=== PATIENT | female | born 2000 | race Caucasian/White ===

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

== ENCOUNTER 2019-03-01 17:12 | Emergency (ER) | payer BC ==
[2019-03-01 17:48] VITALS: BP 116/80
--- NOTE | 2019-03-01 18:32 | UC ---
Eye Complaint HPI - HPI Summary HPI Summary: 18-year-old female presents with complaints of swelling beneath both eyes. States started yesterday with some swelling under the left eye and then when she woke up this morning and swelling under the right eye as well. Patient reports that she has been having this happen about once a month for the past 4 months. She was seen by her primary care provider and told to they felt that it was allergy related. She has been referred to an sales representative consultant but did not follow-up. States she has also noted some mild nasal congestion and clear nasal discharge. Denies fever, chills, eye redness, purulent discharge, visual disturbances, or eye pain. - History of Current Complaint Chief Complaint: UCGeneralIllness Stated Complaint: SWOLLEN EYES Time Seen by Provider: 03/01/19 18:25 Hx Obtained From: Patient Hx Last Menstrual Period: nexplanon Pain Intensity: 0 - Allergies/Home Medications Allergies/Adverse Reactions: Allergies Allergy/AdvReac Type Severity Reaction Status Date / Time No Known Allergies Allergy Verified 03/01/19 17:48 PMH/Surg Hx/FS Hx/Imm Hx Previously Healthy: Yes - Denies significant PMH - Surgical History Surgical History: None - Family History Known Family History: Positive: Non-Contributory - Social History Occupation: Student Lives: Dormitory/Roommates Alcohol Use: Rare Substance Use Type: Marijuana Substance Use Comment - Amount & Last Used: denies at this time Smoking Status (MU): Never Smoked Tobacco Review of Systems All Other Systems Reviewed And Are Negative: Yes Constitutional: Negative: Fever, Chills Skin: Negative: Rash Eyes: Positive: Other - See HPI. Negative: Blurred Vision, Diplopia, Drainage, Eye Redness, Photophobia ENT: Positive: Nasal Discharge, Sinus Congestion. Negative: Sore Throat, Ear Ache, Sinus Pain/Tenderness Respiratory: Negative: Shortness Of Breath, Cough Cardiovascular: Positive: Negative Gastrointestinal: Positive: Negative Genitourinary: Positive: Negative Motor: Positive: Negative Neurological: Positive: Negative Is Patient Immunocompromised?: No Physical Exam - Summary Physical Exam Summary: GENERAL APPEARANCE: Well developed, well nourished, alert and cooperative, and appears to be in no acute distress. EYES: Conjunctiva clear. No drainage. PERRL, EOM intact. Vision is grossly intact. Mild bilateral sub orbital edema. EARS: External auditory canals and tympanic membranes clear, hearing grossly intact. NOSE: Mild nasal congestion. Clear nasal discharge. THROAT: Pharynx normal No tonsilar inflammation, swelling, exudate, or lesions. Uvula midline. Oral cavity normal. Teeth and gingiva in good general condition. NECK: Neck supple, non-tender without lymphadenopathy. CARDIAC: Normal S1 and S2. No S3, S4 or murmurs. Rhythm is regular. There is no peripheral edema, cyanosis or pallor. Extremities are warm and well perfused. Capillary refill is less than 2 seconds. Peripheral pulses intact. LUNGS: Clear to auscultation without rales, rhonchi, wheezing or diminished breath sounds. ABDOMEN: Positive bowel sounds. Soft, nondistended, nontender. No guarding or rebound. No masses or hepatosplenomegally. MUSKULOSKELETAL: ROM intact to all extremities. No joint erythema or tenderness. Normal muscular development. Normal gait. SKIN: Skin normal color, texture and turgor with no lesions or eruptions. Triage Information Reviewed: Yes Vital Signs: Initial Vital Signs Temp 99.9 F 03/01/19 17:45 Pulse 100 03/01/19 17:45 Resp 14 03/01/19 17:45 BP 116/80 03/01/19 17:45 Pulse Ox 100 03/01/19 17:45 Vital Signs Reviewed: Yes Eye Complaint Course/Dx - Course Course Of Treatment: 18-year-old female presents with complaints of swelling beneath both eyes. States started yesterday with some swelling under the left eye and then when she woke up this morning and swelling under the right eye as well. Patient reports that she has been having this happen about once a month for the past 4 months. She was seen by her primary care provider and told to they felt that it was allergy related. She has been referred to an sales representative consultant but did not follow-up. States she has also noted some mild nasal congestion and clear nasal discharge. Denies fever, chills, eye redness, purulent discharge, visual disturbances, or eye pain. Afebrile. Vital signs stable. On exam patient was noted to have clear conjunctiva without drainage, PERRL, EOM intact, vision is grossly intact, mild bilateral sub orbital edema, mild nasal congestion, clear nasal discharge, and otherwise unremarkable exam. Discussed with patient that based on her history and symptoms that I agree that they appear to be allergy related and am recommending that she start on an OTC non-drowsy antihistamine and I will also provide her with olopatadine 0.1% ophthalmic drops 1 drop both eyes twice daily. She is to return here or follow up at the [facility] in 3-5 days if symptoms are not improving area and anticipatory guidance and warning symptoms were reviewed the patient. Verbalizes understanding and agrees with plan of care. - Differential Dx/Diagnosis Differential Diagnosis/HQI/PQRI: Conjunctivitis, Periorbital Cellulitis, Orbital Cellulitis Provider Diagnosis: Allergic conjunctivitis of both eyes Discharge ED - Sign-Out/Discharge Documenting (check all that apply): Patient Departure All imaging exams completed and their final reports reviewed: No Studies - Discharge Plan Condition: Stable Disposition: HOME Prescriptions: Olopatadine 0.1% OPHTH (NF) [Patanol 0.1% OPHTH (NF)] 1 drop BOTH EYES BID #1 btl Patient Education Materials: Conjunctivitis (ED) Referrals: No Primary Care Phys,NOPCP [Primary Care Provider] - Additional Instructions: I suspect that your symptoms are allergy related. Start a non-drowsy [id number] antihistamine such as Zyrtec, Beryl, or Claritin according to directions. Use olopatadine 0.1% ophthalmic drops. Instill 1 drop into both eyes twice daily. Return here or follow up with the [facility] in 3-5 days if symptoms are not improving. Seek immediate medical attention if you develop a fever greater than 100.5 F, have purulent drainage from the eyes, visual disturbances, eye pain, or any worsening of symptoms. - Billing Disposition and Condition Condition: STABLE Disposition: Home - Attestation Statements Provider Attestation: Per institutional requirements, I have reviewed the chart, however, I was not consulted specifically or made aware of this patient by the midlevel provider. I did not personally evaluate, interact with , or disposition this patient.
== END 2019-03-01 18:54 | disposition home or self-care (01) ==
LOC: UCCORT 17:12
DX: H10.13 Acute atopic conjunctivitis, bilateral (principal)
CPT/HCPCS: 99212; G0463